=== PATIENT | male | born 1965 | race Two or more races ===

== ENCOUNTER 2025-04-21 06:04 | Day surgery (SDC) | payer BC ==
[2025-04-19 11:19] VITALS: BMI 30.9
[2025-04-21] MEDS ORDERED: ACETAMINOPHEN 500 MG TABLET (FP) PO PRN (09:00)
[2025-04-21 11:18] VITALS: TEMP 97.2
[2025-04-21 13:03] VITALS: BP 137/87; PULSE 65; RESP 18
== END 2025-04-21 13:16 | disposition home or self-care (01) ==
LOC: JASU-SURG 06:04
PROVIDERS: ATTEND Pain Medicine Pain Medicine
PROC: 3E0R3BZ Introduction of Anesthetic Agent into Spinal Canal, Percutaneous Approach (ICD-10-PCS; 2025-04-21)
PROC: 3E0R33Z Introduction of Anti-inflammatory into Spinal Canal, Percutaneous Approach (ICD-10-PCS; principal; 2025-04-21 12:30)
DX: M54.12 Radiculopathy, cervical region (principal)
CPT/HCPCS: 76000-TC-FY